=== PATIENT | female | born 1990 | race Asian ===

== ENCOUNTER 2020-01-25 08:26 | Emergency (ER) | payer OTHER ==
[~2020-01-25] VITALS: Ht 170.2 cm; Wt 51.3 kg
[2020-01-25 08:34] VITALS: BP 97/64; TEMP 98.9
[2020-01-25 09:15] LABS: PLATELET COUNT 316 K/uL (152-353)
[2020-01-25 09:21] LABS: POTASSIUM 2.9 mmol/L (3.6-5.2)
== END 2020-01-25 09:58 | disposition home or self-care (01) ==
LOC: ED 08:26
PROVIDERS: Family Medicine
DX: N39.0 Urinary tract infection, site not specified (principal); K51.80 Other ulcerative colitis without complications
CPT/HCPCS: 80053; 81000; 81025; 85027; 99283